=== PATIENT | female | born 1975 | race Two or more races ===

== ENCOUNTER 2017-01-19 12:40 | Observation (INO) | payer MEDICAID ==
[~2017-01-19] VITALS: Ht 170.2 cm; Wt 81.6 kg
[2017-01-19] MEDS ORDERED: LORazepam 2MG/ML-1ML VIAL ONE (13:18)
[2017-01-19 13:26] LABS: Basophils # (auto) 0 uL; Basophils % (auto) 0.4 % (0.0-2.0); Eosinophils # (auto) 0.2 uL; Eosinophils % (auto) 1.8 % (0.0-7.0); Hematocrit 38.8 % (36.0-46.0); Hemoglobin 13.3 g/dL (12.2-16.2); Lymphocytes % (auto) 20.6 % (10.0-50.0); Mean Corpuscular Hemoglobin 29.4 pg (28.0-32.0); Mean Corpuscular Hgb Conc. 34.2 g/dL (32.0-36.0); Mean Corpuscular Volume 85.8 fL (80.0-100.0); Mean Platelet Volume 8.3 fL (7.4-10.4); Monocytes # (auto) 0.4 uL; Monocytes % (auto) 4.2 % (0.0-12.0); Platelet Count (auto) 440 10^3/uL (140-450); Red Cell Distribution Width 14.2 % (11.6-16.0); White Blood Cell 9.5 10^3/uL (4.4-10.8)
[2017-01-19] MEDS ORDERED: LORazepam 2MG/ML-1ML VIAL IV ONE (13:45)
[2017-01-19 13:50] LABS: Lactic Acid w/Reflex 2.2 mmol/L (0.4-2.0)
[2017-01-19 13:50] LABS: Albumin 2.2 g/dL (3.4-5.0); Alkaline Phosphatase 89 U/L (45-117); Anion Gap 11 (5-15); Aspartate Aminotransferase 11 U/L (15-37); BUN/Creatinine Ratio 16.2; Bilirubin, Total 0.3 mg/dL (0.2-1.0); Blood Urea Nitrogen 36 mg/dL (7-18); Calcium 8.7 mg/dL (8.5-10.1); Carbon Dioxide 17 mmol/L (21-32); Chloride 109 mmol/L (98-107); GFR African American 31 mL/min; GFR Non-African American 26 mL/min; Glucose 155 mg/dL (74-106); Potassium 3.9 mmol/L (3.5-5.1); Sodium 137 mmol/L (136-145); Total Protein 6.7 g/dL (6.4-8.2)
[2017-01-19 13:55] LABS: REFLEX LACTIC ACID YES OR NO YES
[2017-01-19] MEDS ORDERED: ONDANSETRON HCL 4 MG/2 ML VIAL ONE ×2 (14:13→17:26)
[2017-01-19] MEDS ORDERED: ONDANSETRON HCL 4 MG/2 ML VIAL IV ONE ×2 (14:30→17:45)
[2017-01-19] MEDS ORDERED: LABETALOL HCL 5 MG/ML 4ML SYRINGE IV ONE (14:30)
[2017-01-19 14:49] LABS: INR 0.91 (0.9-1.15); Partial Thromboplastin Time 25.9 sec (22.64-33.71); Prothrombin Time 9.8 sec (9.37-12.3)
[2017-01-19 16:06] LABS: Urine Bilirubin Negative (Negative); Urine Blood TRACE /uL (Negative); Urine Color Yellow (Yellow); Urine Ketone Negative (Negative); Urine Nitrite Negative (Negative); Urine RBC 2 /hpf (0 - 4); Urine Squamous Epithelial Cell FEW /hpf (<5); Urine Urobilinogen Normal (Negative); Urine pH 6.5 (5.0-8.0)
[2017-01-19 16:08] LABS: Urine Glucose 3+ mg/dL (Normal)
[2017-01-19 17:12] VITALS: BP 174/92
== END 2017-01-19 17:42 | disposition left against medical advice (07) | DRG 861 ==
LOC: ER 12:48 → OVERFLOW 12:55 → ER 17:42
PROVIDERS: ADMIT Family Medicine; ATTEND Family Medicine
DX: R41.82 Altered mental status, unspecified (principal); N19 Unspecified kidney failure; I10 Essential (primary) hypertension; E11.9 Type 2 diabetes mellitus without complications; Z79.4 Long term (current) use of insulin
CPT/HCPCS: 36415; 70450; 71010; 80053; 80307; 81001; 82962; 83605; 83735; 84484; 85025; 85610; 85730; 87040; 93005; 96374; 96375; 99285; G0378; J2060; J2405; J3490